=== PATIENT | female | born 1935 | race Caucasian/White ===

== ENCOUNTER 2017-11-19 19:10 | Emergency (ER) | payer MEDICARE, MEDICAID ==
[~2017-11-19] VITALS: Ht 157.5 cm; Wt 60.0 kg
[2017-11-19] MEDS ORDERED: HYDROCODONE/ACETAMINOPHEN 5/325MG TABLET PO STA (19:19)
[2017-11-19] MEDS ORDERED: TETANUS, DIPHTHERIA, PERTUSSIS VAC/PF 0.5ML (>7YR OLD) IM ONE (19:30)
[2017-11-20] MEDS ORDERED: KETOROLAC 30MG/ML VIAL IM ONE (03:45)
[2017-11-20 04:05] VITALS: BP 127/72
== END 2017-11-20 04:13 | disposition home or self-care (01) ==
LOC: ER 19:10
DX: S00.83XA Contusion of other part of head, initial encounter (principal); S70.02XA Contusion of left hip, initial encounter; S53.402A Unspecified sprain of left elbow, initial encounter; S50.312A Abrasion of left elbow, initial encounter; R51 Headache; R03.0 Elevated blood-pressure reading, without diagnosis of hypertension; W01.198A Fall on same level from slipping, tripping and stumbling with subsequent striking against other object, initial encounter; Y93.89 Activity, other specified; Y92.098 Other place in other non-institutional residence as the place of occurrence of the external cause; Z85.9 Personal history of malignant neoplasm, unspecified
CPT/HCPCS: 70450; 72125; 73080; 73502; 73552; 90471; 90715; 96372; 99284; J1885; A4565